=== PATIENT | female | born 1990 | race Caucasian/White ===

== ENCOUNTER 2018-11-02 20:16 | Emergency (ER) | payer BC ==
[2018-11-02] MEDS ORDERED: ONDANSETRON HCL INJ/PF 4 MG/2 ML SDV IV ONE (21:52)
[2018-11-02] MEDS ORDERED: NORMAL SALINE 1000 ML 1,000 ML IV ONE (21:52)
[2018-11-02 22:53] LABS: APPEARANCE,URINE CLEAR; BILIRUBIN,URINE NEGATIVE (NEGATIVE); COLOR,URINE YELLOW; GLUCOSE, URINE NEGATIVE (NEGATIVE); KETONES,URINE NEGATIVE (NEGATIVE); LEUKOCYTE ESTERASE,URINE NEGATIVE (NEGATIVE); NITRITE,URINE NEGATIVE (NEGATIVE); PROTEIN,URINE NEGATIVE (NEGATIVE); URINE SPECIFIC GRAVITY 1.011; UROBILINOGEN,URINE NEGATIVE mg/dL (<2.0)
[2018-11-02 22:58] LABS: ABSOLUTE BASOPHILS # (AUTO) 0.1 10^3/uL (0.0-0.2); ABSOLUTE EOSINOPHILS # (AUTO) 0.4 10^3/uL (0.0-0.6); ABSOLUTE LYMPHOCYTES (AUTO) 2.5 10^3/uL (0.5-4.7); ABSOLUTE MONOCYTES (AUTO) 0.5 10^3/uL (0.1-1.4); ABSOLUTE NEUT (AUTO) 3.3 10^3/uL (1.7-8.2); BASOPHILS % (AUTO) 1.4 % (0-2); EOSINOPHILS % (AUTO) 5.8 % (0-6); HEMATOCRIT 36.5 % (36.0-47.0); HEMOGLOBIN 12.4 g/dL (12.0-15.5); LYMPHOCYTES % (AUTO) 36.9 % (13-45); MEAN CORPUSCULAR HEMOGLOBIN 29.8 pg (27.0-33.4); MEAN CORPUSCULAR VOLUME 87 fl (80-97); MONOCYTES % (AUTO) 7.1 % (3-13); PLATELET COUNT 237 10^3/uL (150-450); RED BLOOD COUNT 4.18 10^6/uL (3.72-5.28); RED CELL DISTRIBUTION WIDTH 13.5 % (11.5-14.0); SEGMENTED NEUTROPHILS % (AUTO) 48.8 % (42-78); TOTAL CELLS COUNTED % (AUTO) 100 %; WHITE BLOOD COUNT 6.8 10^3/uL (4.0-10.5)
[2018-11-03 00:18] LABS: ALANINE AMINOTRANSFERASE 28 U/L (9-52); ALKALINE PHOSPHATASE 37 U/L (38-126); ANION GAP 7 (5-19); ASPARTATE AMINO TRANSFERASE 15 U/L (14-36); BILIRUBIN,TOTAL 0.3 mg/dL (0.2-1.3); BLOOD UREA NITROGEN 14 mg/dL (7-20); CALCIUM 8.9 mg/dL (8.4-10.2); CARBON DIOXIDE 28 mmol/L (22-30); CHLORIDE 107 mmol/L (98-107); GLUCOSE 98 mg/dL (75-110); LIPASE 86.6 U/L (23-300); POTASSIUM 3.9 mmol/L (3.6-5.0); SODIUM 141.6 mmol/L (137-145); TOTAL PROTEIN 5.9 g/dL (6.3-8.2)
--- NOTE | 2018-11-03 00:41 | RADIOLOGY REPORT (SQ) ---
CLINICAL HISTORY: upper abdominal pain COMPARISON: None. TECHNIQUE: US ABDOMEN LIMITED on 11/02/2018 10:45 PM INFORMATION ARCHITECT FINDINGS: Liver is normal in echotexture. Portal vein is patent. Abdominal aorta is nonaneurysmal. Limited images of the pancreas are unremarkable. Gallbladder is normally distended with a nonmobile stone in the gallbladder neck. Several other gallstones are present. There is no wall thickening or pericholecystic fluid. Common bile duct measures 2 mm. Right kidney measures 10.9 cm without hydronephrosis. IMPRESSION: Cholelithiasis without cholecystitis.
[2018-11-03] MEDS ORDERED: METOCLOPRAMIDE HCL ORAL SOLN 10 MG/10 ML UDCUP PO ONE (01:21)
[2018-11-03] MEDS ORDERED: SUCRALFATE 1 GM TABLET PO ONE (01:21)
[2018-11-03] MEDS ORDERED: LIDOCAINE 2% VISCOUS SOLN 20 ML UDCUP PO ONE (01:21)
[2018-11-03] MEDS ORDERED: FAMOTIDINE 20 MG TABLET PO ONE (01:21)
[2018-11-03] MEDS ORDERED: MAG HYDROX/AL HYDROX/SIMETH SUSP 30 ML UDCUP PO ONE (01:21)
--- NOTE | 2018-11-03 01:24 | ER Document Report ---
ED General - General Chief Complaint: Abdominal Pain Stated Complaint: NAUSEA,ABDOMINAL PAIN,BACK PAIN Time Seen by Provider: 11/02/18 22:28 Primary Care Provider: ALEXUS GORDON MD [ACTIVE STAFF] - Follow up as needed Notes: Patient is a 28-year-old female without chronic medical problems who presents with approximately 6 months of daily upper abdominal pain. Patient describes it as being an aching, burning pain to her upper abdomen that sometimes radiates into her chest. States it seems to be triggered by lying flat at night or eating. She states that there are various types of foods that trigger the pain but is uncertain of an exact pattern. She has tried Tums and Pepto-Bismol with minimal to no relief. Has not seen her general doctor regarding these concerns. Denies history of similar symptoms prior to the past several months. Has had associated nausea and vomiting. No fever or constitutional symptoms. No history of abdominal surgeries. TRAVEL OUTSIDE OF THE [place] IN LAST 30 DAYS: No - Related Data Allergies/Adverse Reactions: iodine [Iodine] Allergy (Mild, Verified 11/02/18 22:37) nausea and vomiting Past Medical History - General Information source: Patient - Social History Smoking Status: Never Smoker Frequency of alcohol use: None Drug Abuse: None Family History: Reviewed & Not Pertinent Past Surgical History: Reports: Hx Bowel Surgery - Imperforate anus surgery - Immunizations Immunizations up to date: Yes Hx Diphtheria, Pertussis, Tetanus Vaccination: Yes Review of Systems - Review of Systems Notes: Constitutional: Negative for fever. HENT: Negative for sore throat. Eyes: Negative for visual changes. Cardiovascular: Negative for chest pain. Respiratory: Negative for shortness of breath. Gastrointestinal: Positive for abdominal pain, nausea and vomiting Genitourinary: Negative for dysuria. Musculoskeletal: Negative for back pain. Skin: Negative for rash. Neurological: Negative for headaches, weakness or numbness. 10 point ROS negative except as marked above and in HPI. Physical Exam - Vital signs Vitals: Temp Pulse Resp BP Pulse Ox 98.1 F 78 18 119/53 L 100 11/02/18 20:40 11/02/18 20:40 11/02/18 20:40 11/02/18 20:40 11/02/18 20:40 Interpretation: Normal Notes: PHYSICAL EXAMINATION: GENERAL: Well-appearing, well-nourished and in no acute distress. HEAD: Atraumatic, normocephalic. EYES: Pupils equal round and reactive to light, extraocular movements intact, sclera anicteric, conjunctiva are normal. ENT: nares patent, oropharynx clear without exudates. Moist mucous membranes. NECK: Normal range of motion, supple without lymphadenopathy LUNGS: Breath sounds clear to auscultation bilaterally and equal. No wheezes rales or rhonchi. HEART: Regular rate and rhythm without murmurs ABDOMEN: Soft, nontender, normoactive bowel sounds. No guarding, no rebound. No masses appreciated. EXTREMITIES: Normal range of motion, no pitting or edema. No cyanosis. NEUROLOGICAL: No focal neurological deficits. Moves all extremities spontaneously and on command. PSYCH: Normal mood, normal affect. SKIN: Warm, Dry, normal turgor, no rashes or lesions noted. Course - Re-evaluation Re-evalutation: 11/03/18 01:21 Patient presents with epigastric abdominal pain with associated reflux symptoms most consistent with likely gastritis. Alternative consideration would be symptomatic cholelithiasis although the patient's characterization of nighttime symptoms and localization of pain to the epigastrium left upper quadrant will be atypical for this. Patient has no focal abdominal tenderness on examination. Right upper quadrant ultrasound does not demonstrate any evidence of acute cholecystitis. Lipase is normal. No LFT changes. Based on history and exam, I do not suspect ACS, pulmonary embolus, SBO, mesenteric ischemia, acute pancreatitis, biliary pathology, or an abdominal aortic dissection. Patient has had improvement of symptoms here with a GI cocktail. At this time will discharge with return precautions and follow-up recommendations. I have advised that should her symptoms fail to improve she will need to follow-up with surgery for consideration of a cholecystectomy. Verbal discharge instructions given a the bedside and opportunity for questions given. Medication warnings reviewed. Patient is in agreement with this plan and has verbalized understanding of return precautions and the need for primary care follow-up in the next 24-72 hours. - Vital Signs Vital signs: Temp Pulse Resp BP Pulse Ox 97.9 F 65 18 85/43 L 99 11/03/18 01:35 11/03/18 01:35 11/03/18 01:35 11/03/18 01:35 11/03/18 01:35 - Laboratory Result Diagrams: 11/02/18 22:54 11/02/18 23:50 Laboratory results interpreted by me: 11/02/18 23:50 Alkaline Phosphatase 37 L Total Protein 5.9 L - Diagnostic Test Radiology reviewed: Reports reviewed Discharge - Discharge Clinical Impression: Gastritis/duodenitis Nausea and vomiting Qualifiers: Vomiting type: unspecified Vomiting Intractability: non-intractable Qualified Code(s): R11.2 - Nausea with vomiting, unspecified Cholelithiasis Qualifiers: Cholelithiasis location: gallbladder Cholecystitis presence: without cholecystitis Biliary obstruction: without biliary obstruction Qualified Code(s): K80.20 - Calculus of gallbladder without cholecystitis without obstruction Condition: Good Disposition: HOME, SELF-CARE Additional Instructions: Your symptoms appear to be most consistent with stomach or upper intestinal irritation. Please begin taking famotidine 40 mg in the morning and 40 mg at night. Take Carafate prior to meals. You may also take medicine such as Pepto- Bismol or Tums to assist with your pain. Please return to emergency department immediately if you have worsening of your pain, become unable to tolerate food or fluids, develop fever of greater than 100.4 F, shortness of breath, become unable to exert yourself due to pain or difficulty breathing, you pass out, or have any pain that radiates into your arms, jaw, or back. Please also return if you have any additional symptoms that are concerning to you. As we have discussed, the most important thing is lifestyle changes. You need to avoid smoking, sodas, tea, coffee, alcohol, spicy foods, and acidic foods such as citrus fruits, tomato based products, berries, and most fruit juices. As we discussed you do have gallstones but it does not appear that your gallbladder is likely the cause of your pain today. However if you are failing to improve with the dietary changes as listed above as well as the prescribed medications within the next 1-2 weeks I strongly advised you to follow-up with surgery for consideration of an elective cholecystectomy. Prescriptions: Famotidine 40 mg PO BID #60 tablet Sucralfate [Carafate 1 gm Tablet] 1 gm PO ACHS #120 tablet Referrals: ALEXUS GORDON MD [ACTIVE STAFF] - Follow up as needed
[2018-11-03 01:41] VITALS: BP 85/43
== END 2018-11-03 02:10 | disposition home or self-care (01) ==
LOC: ER 20:16
DX: K29.70 Gastritis, unspecified, without bleeding (principal); K29.80 Duodenitis without bleeding; K80.20 Calculus of gallbladder without cholecystitis without obstruction; R11.2 Nausea with vomiting, unspecified; R10.13 Epigastric pain
CPT/HCPCS: 99283; 96361; 96374; 36415; 83690; 84703; 85025; 80053; 81001; 76705; J3490; J2405; J7030

== ENCOUNTER 2018-11-04 22:37 | Emergency (ER) | payer BC ==
[2018-11-04] MEDS ORDERED: MORPHINE SULFATE 10 MG/ML INJ IV ONE (23:18)
[2018-11-04] MEDS ORDERED: NORMAL SALINE 1000 ML 1,000 ML IV ONE (23:19)
[2018-11-04] MEDS ORDERED: ONDANSETRON HCL INJ/PF 4 MG/2 ML SDV IV ONE (23:19)
--- NOTE | 2018-11-04 23:21 | ER Document Report ---
ED Medical Screen (RME) - General Chief Complaint: Upper Abdominal Pain Stated Complaint: UPPER ABDOMINAL PAIN Time Seen by Provider: 11/04/18 23:09 Primary Care Provider: NIRALI DUNN MD [Primary Care Provider] - Follow up as needed Notes: Patient is a 28-year-old female who presents to the emergency department with a chief complaint of abdominal pain. Her pain is in the epigastric region and in her right upper quadrant. She was seen 2 days ago and diagnosed with cholelithiasis without cholecystitis. She was sent home to be medically managed. She states that she has continued to have the pain. Her pain does come in waves. This last wave started 3 hours ago. TRAVEL OUTSIDE OF THE [place] IN LAST 30 DAYS: No - Related Data Allergies/Adverse Reactions: iodine [Iodine] Allergy (Mild, Verified 11/02/18 22:37) nausea and vomiting Past Medical History - Social History Chew tobacco use (# tins/day): No Frequency of alcohol use: None Drug Abuse: None Renal/ Medical History: Denies: Hx Peritoneal Dialysis GI Medical History: Reports: Hx Gastroesophageal Reflux Disease Past Surgical History: Reports: Hx Bowel Surgery - Imperforate anus surgery - Immunizations Immunizations up to date: Yes Hx Diphtheria, Pertussis, Tetanus Vaccination: Yes Physical Exam - Vital signs Vitals: Temp Pulse Resp BP Pulse Ox 98.2 F 86 18 134/54 H 98 11/04/18 23:10 11/04/18 23:10 11/04/18 23:10 11/04/18 23:10 11/04/18 23:10 - Abdominal Tenderness: Tender, McBurney's point - Epigastric area Course - Vital Signs Vital signs: Temp Pulse Resp BP Pulse Ox 98.2 F 86 18 134/54 H 98 11/04/18 23:10 11/04/18 23:10 11/04/18 23:10 11/04/18 23:10 11/04/18 23:10 Doctor's Discharge - Discharge Referrals: NIRALI DUNN MD [Primary Care Provider] - Follow up as needed
[2018-11-05 00:14] LABS: ABSOLUTE EOSINOPHILS # (AUTO) 0.6 10^3/uL (0.0-0.6); ABSOLUTE LYMPHOCYTES (AUTO) 1.9 10^3/uL (0.5-4.7); ABSOLUTE MONOCYTES (AUTO) 0.4 10^3/uL (0.1-1.4); ABSOLUTE NEUT (AUTO) 3.4 10^3/uL (1.7-8.2); BASOPHILS % (AUTO) 0.6 % (0-2); EOSINOPHILS % (AUTO) 9.5 % (0-6); HEMATOCRIT 35.6 % (36.0-47.0); HEMOGLOBIN 12.1 g/dL (12.0-15.5); LYMPHOCYTES % (AUTO) 30.2 % (13-45); MEAN CORPUSCULAR HEMOGLOBIN 29.5 pg (27.0-33.4); MEAN CORPUSCULAR HGB CONC 34.1 g/dL (32.0-36.0); MEAN CORPUSCULAR VOLUME 87 fl (80-97); MONOCYTES % (AUTO) 6.7 % (3-13); PLATELET COUNT 232 10^3/uL (150-450); RED BLOOD COUNT 4.11 10^6/uL (3.72-5.28); RED CELL DISTRIBUTION WIDTH 13.4 % (11.5-14.0); TOTAL CELLS COUNTED % (AUTO) 100 %; WHITE BLOOD COUNT 6.4 10^3/uL (4.0-10.5)
[2018-11-05 00:25] LABS: ALANINE AMINOTRANSFERASE 27 U/L (9-52); ALBUMIN 4.4 g/dL (3.5-5.0); ALKALINE PHOSPHATASE 35 U/L (38-126); ANION GAP 8 (5-19); ASPARTATE AMINO TRANSFERASE 17 U/L (14-36); BILIRUBIN,TOTAL 0.5 mg/dL (0.2-1.3); BLOOD UREA NITROGEN 13 mg/dL (7-20); CALCIUM 9.6 mg/dL (8.4-10.2); CARBON DIOXIDE 27 mmol/L (22-30); CHLORIDE 106 mmol/L (98-107); GLUCOSE 90 mg/dL (75-110); POTASSIUM 4.3 mmol/L (3.6-5.0); SODIUM 141.1 mmol/L (137-145); TOTAL PROTEIN 6.5 g/dL (6.3-8.2)
--- NOTE | 2018-11-05 00:48 | ER Document Report ---
ED GI/ - General Chief Complaint: Upper Abdominal Pain Stated Complaint: UPPER ABDOMINAL PAIN Time Seen by Provider: 11/05/18 00:48 Primary Care Provider: NIRALI DUNN MD [Primary Care Provider] - Follow up as needed ALEXUS GORDON MD [ACTIVE STAFF] - Follow up as needed Mode of Arrival: Ambulatory Information source: Patient, Relative Notes: HISTORY OF PRESENT ILLNESS: Patient is a 28-year-old female with no significant past medical history who presents with abdominal pain in the upper abdomen that has been off and on for the past several days but first began "at least a couple months ago." Patient denies known injuries, no known sick contacts. Location: Upper abdomen Onset: Sudden, chronic over the past 2-3 months Alleviation: None Provocation: "Eating food" Quality: Aching, cramping Radiation: "Through to the back" Severity: Currently mild after medication, "severe" at its worst Timing: Intermittent History of abdominal surgery: None Associated symptoms: Nausea with nonbloody and nonbilious emesis, denies fevers or chills Last bowel movement: Yesterday and "normal" Last menstrual period: 3 weeks ago and normal REVIEW OF SYSTEMS: CONSTITUTIONAL : Denies fever or chills, no sweats. Denies recent illness. EENT: Denies eye, ear, throat, or mouth pain or symptoms. Denies nasal or sinus congestion. CARDIOVASCULAR: Denies chest pain. Denies swelling of the legs. RESPIRATORY: Denies cough, cold, or chest congestion. Denies shortness of breath or difficulty breathing. Denies wheezing. GASTROINTESTINAL: Positive for abdominal pain. Positive for nausea and vomiting nonbloody and nonbilious emesis, no diarrhea. Denies constipation. GENITOURINARY: Denies difficulty urinating, painful urination, burning, frequency, or blood in urine. FEMALE GENITOURINARY: Denies vaginal bleeding, abnormal or irregular periods. MUSCULOSKELETAL: Denies neck or back pain or joint pain or swelling. SKIN: Denies rash or skin lesions. HEMATOLOGIC : Denies easy bruising or bleeding. LYMPHATIC: Denies swollen, enlarged glands. NEUROLOGICAL: Denies altered mental status or loss of consciousness. Denies headache. Denies weakness or paralysis or loss of use of either side. Denies problems with gait or speech. Denies sensory or motor loss. PSYCHIATRIC: Denies anxiety or stress or depression. All other systems reviewed and negative. PHYSICAL EXAMINATION: GENERAL: Well-appearing, well-nourished and in no acute distress. HEAD: Atraumatic, normocephalic. No scalp deformity, depression, or crepitance. EYES: Pupils are 3 mm and equal/round/reactive to light, extraocular movements intact, sclera anicteric, conjunctiva are normal. ENT: Nares patent bilaterally, oropharynx. Moist mucous membranes. No tonsil hypertrophy. NECK: Normal range of motion, supple without lymphadenopathy. LUNGS: Breath sounds present, equal, and clear to auscultation bilaterally. No wheezes, rales, or rhonchi. HEART: Regular rate and rhythm without murmurs, rubs, or gallops. 2+ peripheral pulses. Normal capillary refill. ABDOMEN: Mild epigastric and right upper quadrant tenderness, otherwise soft and nondistended, no peritoneal signs. Normoactive bowel sounds. No guarding, no rebound. No masses appreciated. BACK: Normal contour, no midline tenderness. Rectal exam deferred. GENITAL/PELVIC: Deferred. EXTREMITIES: Normal range of motion, no pitting or edema. No cyanosis. NEUROLOGICAL: No focal neurological deficits. Moves all extremities spontaneously and on command. PSYCH: Normal mood, normal affect. No suicidal thoughts/ideations. No homocidal thoughts/ideations. No hallucinations. SKIN: Warm, dry, normal turgor, no rashes or lesions noted. ASSESSMENT AND PLAN: This patient is a 28-year-old female who presents with abdominal pain most likely represents cholelithiasis versus cholecystitis versus pancreatitis versus gastritis/peptic ulcer disease. 1. Will obtain labs, urine, lipase, right upper quadrant ultrasound. 2. Will give IV fluids with morphine and Zofran. TRAVEL OUTSIDE OF THE [place] IN LAST 30 DAYS: No - Related Data Allergies/Adverse Reactions: iodine [Iodine] Allergy (Mild, Verified 11/02/18 22:37) nausea and vomiting Past Medical History - General Information source: Patient, Relative - Social History Smoking Status: Unknown if Ever Smoked Chew tobacco use (# tins/day): No Frequency of alcohol use: None Drug Abuse: None Lives with: Family Family History: Reviewed & Not Pertinent Patient has suicidal ideation: No Patient has homicidal ideation: No - Past Medical History Cardiac Medical History: Reports: None Pulmonary Medical History: Reports: None EENT Medical History: Reports: None Neurological Medical History: Reports: None Endocrine Medical History: Reports: None Renal/ Medical History: Reports: None. Denies: Hx Peritoneal Dialysis Malignancy Medical History: Reports: None GI Medical History: Reports: Hx Gastroesophageal Reflux Disease Musculoskeletal Medical History: Reports None Skin Medical History: Reports None Psychiatric Medical History: Reports: None Traumatic Medical History: Reports: None Infectious Medical History: Reports: None Past Surgical History: Reports: Hx Bowel Surgery - Imperforate anus surgery - Immunizations Immunizations up to date: Yes Hx Diphtheria, Pertussis, Tetanus Vaccination: Yes Physical Exam - Vital signs Vitals: Temp Pulse Resp BP Pulse Ox 98.2 F 86 18 134/54 H 98 11/04/18 23:10 11/04/18 23:10 11/04/18 23:10 11/04/18 23:10 11/04/18 23:10 Course - Re-evaluation Re-evalutation: 11/05/18 03:16 Ultrasound shows cholelithiasis without evidence of acute cholecystitis. Labs show normal white blood cell count, normal LFTs and lipase. Patient will be discharged home with return precautions and follow-up with surgery for an outpatient elective cholecystectomy. Patient and her father at bedside both voiced understanding and agreeing with the plan. - Vital Signs Vital signs: Temp Pulse Resp BP Pulse Ox 98.2 F 88 14 97/54 L 98 11/04/18 23:10 11/05/18 03:33 11/05/18 03:33 11/05/18 03:33 11/05/18 03:33 - Laboratory Result Diagrams: 11/04/18 23:57 11/04/18 23:57 Laboratory results interpreted by me: 11/04/18 11/04/18 23:57 23:57 Hct 35.6 L Eosinophils % 9.5 H Alkaline Phosphatase 35 L - Diagnostic Test Radiology reviewed: Image reviewed, Reports reviewed Discharge - Discharge Clinical Impression: Abdominal pain Qualifiers: Abdominal location: epigastric Qualified Code(s): R10.13 - Epigastric pain Cholelithiasis Qualifiers: Cholelithiasis location: gallbladder Cholecystitis presence: without cholecystitis Biliary obstruction: without biliary obstruction Qualified Code(s): K80.20 - Calculus of gallbladder without cholecystitis without obs truction Condition: Good Disposition: HOME, SELF-CARE Instructions: Gallbladder Disease ([facility]) Additional Instructions: You have been evaluated in the Emergency Department for abdominal pain related to your gallbladder. Blood work was reassuring and an ultrasound showed evidence of gallstones but no infection. Please follow-up with your primary physician but also a surgeon in the next few days to discuss having your gallbladder removed. Return to the Emergency Department if you experience unc ontrollable nausea, uncontrollable pain, the inability to keep down food, high fevers, or any other concerning symptoms. Prescriptions: Ondansetron [Zofran Odt 4 mg Tablet] 1 tab PO Q6H PRN #30 tab.rapdis PRN Reason: For Nausea/Vomiting Oxycodone HCl/Acetaminophen [Percocet 5-325 mg Tablet] 1 tab PO Q6H PRN #20 tablet PRN Reason: Forms: Return to Work Referrals: NIRALI DUNN MD [Primary Care Provider] - Follow up as needed ALEXUS GORDON MD [ACTIVE STAFF] - Follow up as needed Print Language: Arabic
--- NOTE | 2018-11-05 00:54 | RADIOLOGY REPORT (SQ) ---
EXAM DESCRIPTION: US ABDOMEN LIMITED COMPLETED DATE/TME: 11/04/2018 23:18 CLINICAL HISTORY: 28 years, Female, right upper quadrant abd pain COMPARISON: 2-19 ultrasound TECHNIQUE: Limited right upper quadrant ultrasound LIMITATIONS: None. FINDINGS: The liver is homogenous in echotexture without focal lesion. Numerous shadowing stones throughout the gallbladder lumen. Negative sonographic Burgess sign. No gallbladder wall thickening or pericholecystic fluid. CBD measures 4.5 mm. Visualized right kidney, pancreas, abdominal aorta are unremarkable. No ascites. IMPRESSION: Cholelithiasis. No sonographic evidence for cholecystitis copyright 2010 [facility] [employer]- All Rights Reserved
[2018-11-05] MEDS ORDERED: MORPHINE SULFATE 10 MG/ML INJ IV ONE (02:42)
[2018-11-05] MEDS ORDERED: ONDANSETRON HCL INJ/PF 4 MG/2 ML SDV IV ONE (02:43)
[2018-11-05 03:34] VITALS: BP 97/54
== END 2018-11-05 03:34 | disposition home or self-care (01) ==
LOC: ER 22:37
DX: K80.20 Calculus of gallbladder without cholecystitis without obstruction (principal); R10.13 Epigastric pain; R10.10 Upper abdominal pain, unspecified; R11.2 Nausea with vomiting, unspecified
CPT/HCPCS: 96376; 99284; 96361; 96374; 96375; 36415; 85025; 80053; 76705; J2270; J2405; J7030

== ENCOUNTER 2018-11-07 23:18 | Observation (INO) | payer BC ==
[2018-11-07] MEDS ORDERED: MORPHINE SULFATE 10 MG/ML INJ IV ONE (23:42)
[2018-11-07] MEDS ORDERED: ONDANSETRON HCL INJ/PF 4 MG/2 ML SDV IV ONE (23:42)
[2018-11-07] MEDS ORDERED: NORMAL SALINE 1000 ML 1,000 ML IV ONE (23:42)
--- NOTE | 2018-11-07 23:45 | ER Document Report ---
ED Medical Screen (RME) - General Chief Complaint: Abdominal Pain Stated Complaint: STOMACH PAIN Time Seen by Provider: 11/07/18 23:41 Primary Care Provider: NIRALI DUNN MD [Primary Care Provider] - Follow up as needed Notes: 28-year-old female with known cholelithiasis. Comes into the third time this week with gallbladder related abdominal pain and intractable vomiting. She has not yet seen the surgeon as an outpatient. No fevers or chills. No jaundice. I have treated and performed a rapid initial assessment of this patient. A comprehensive ED assessment and evaluation of the patient, analysis of test results and completion of medical decision making process will be conducted by additional ED providers. PHYSICAL EXAMINATION: GENERAL: Very uncomfortable, moving around in triage letting her stomach LUNGS: Breath sounds clear to auscultation bilaterally and equal. No wheezes rales or rhonchi. HEART: Regular rate and rhythm without murmurs, rubs, gallops. ABD: Nondistended. TRAVEL OUTSIDE OF THE [place] IN LAST 30 DAYS: No - Related Data Allergies/Adverse Reactions: iodine [Iodine] Allergy (Mild, Verified 11/02/18 22:37) nausea and vomiting Past Medical History Renal/ Medical History: Denies: Hx Peritoneal Dialysis GI Medical History: Reports: Hx Gastroesophageal Reflux Disease Past Surgical History: Reports: Hx Bowel Surgery - Imperforate anus surgery - Immunizations Immunizations up to date: Yes Hx Diphtheria, Pertussis, Tetanus Vaccination: Yes Physical Exam - Vital signs Vitals: Temp Pulse Resp BP Pulse Ox 97.6 F 89 20 115/65 99 11/07/18 23:32 11/07/18 23:32 11/07/18 23:32 11/07/18 23:32 11/07/18 23:32 Course - Vital Signs Vital signs: Temp Pulse Resp BP Pulse Ox 97.6 F 89 20 115/65 99 11/07/18 23:32 11/07/18 23:32 11/07/18 23:32 11/07/18 23:32 11/07/18 23:32 Doctor's Discharge - Discharge Referrals: NIRALI DUNN MD [Primary Care Provider] - Follow up as needed
[2018-11-08 00:05] LABS: ABSOLUTE BASOPHILS # (AUTO) 0.1 10^3/uL (0.0-0.2); ABSOLUTE EOSINOPHILS # (AUTO) 0.7 10^3/uL (0.0-0.6); ABSOLUTE LYMPHOCYTES (AUTO) 2.6 10^3/uL (0.5-4.7); ABSOLUTE MONOCYTES (AUTO) 0.5 10^3/uL (0.1-1.4); ABSOLUTE NEUT (AUTO) 3.8 10^3/uL (1.7-8.2); BASOPHILS % (AUTO) 0.7 % (0-2); EOSINOPHILS % (AUTO) 9.2 % (0-6); HEMATOCRIT 35.5 % (36.0-47.0); HEMOGLOBIN 12.2 g/dL (12.0-15.5); LYMPHOCYTES % (AUTO) 33.9 % (13-45); MEAN CORPUSCULAR HEMOGLOBIN 29.8 pg (27.0-33.4); MEAN CORPUSCULAR HGB CONC 34.4 g/dL (32.0-36.0); MEAN CORPUSCULAR VOLUME 87 fl (80-97); MONOCYTES % (AUTO) 6.1 % (3-13); PLATELET COUNT 248 10^3/uL (150-450); RED CELL DISTRIBUTION WIDTH 13.3 % (11.5-14.0); SEGMENTED NEUTROPHILS % (AUTO) 50.1 % (42-78); TOTAL CELLS COUNTED % (AUTO) 100 %; WHITE BLOOD COUNT 7.7 10^3/uL (4.0-10.5)
[2018-11-08 00:10] LABS: APPEARANCE,URINE SLIGHTLY-CLOUDY; BILIRUBIN,URINE NEGATIVE (NEGATIVE); COLOR,URINE YELLOW; GLUCOSE, URINE NEGATIVE (NEGATIVE); KETONES,URINE NEGATIVE (NEGATIVE); LEUKOCYTE ESTERASE,URINE NEGATIVE (NEGATIVE); NITRITE,URINE NEGATIVE (NEGATIVE); PROTEIN,URINE NEGATIVE (NEGATIVE); URINE SPECIFIC GRAVITY 1.015; UROBILINOGEN,URINE NEGATIVE mg/dL (<2.0)
[2018-11-08 00:21] LABS: ALANINE AMINOTRANSFERASE 20 U/L (9-52); ALBUMIN 4.3 g/dL (3.5-5.0); ALKALINE PHOSPHATASE 36 U/L (38-126); ANION GAP 8 (5-19); ASPARTATE AMINO TRANSFERASE 18 U/L (14-36); BILIRUBIN,DIRECT 0.2 mg/dL (0.0-0.4); BILIRUBIN,TOTAL 0.3 mg/dL (0.2-1.3); BLOOD UREA NITROGEN 13 mg/dL (7-20); CALCIUM 9.4 mg/dL (8.4-10.2); CARBON DIOXIDE 28 mmol/L (22-30); CHLORIDE 104 mmol/L (98-107); GLUCOSE 100 mg/dL (75-110); LIPASE 80.1 U/L (23-300); POTASSIUM 4.4 mmol/L (3.6-5.0); SODIUM 139.7 mmol/L (137-145); TOTAL PROTEIN 6.2 g/dL (6.3-8.2)
[2018-11-08] MEDS ORDERED: MORPHINE SULFATE 10 MG/ML INJ IV ONE ×2 (01:30→16:00)
[2018-11-08] MEDS ORDERED: HYDROMORPHONE HCL INJ/PF 2 MG/ML AMPULE IV ONE ×2 (03:09→05:13)
--- NOTE | 2018-11-08 03:16 | ER Document Report ---
ED General - General Chief Complaint: Abdominal Pain Stated Complaint: STOMACH PAIN Time Seen by Provider: 11/07/18 23:41 Primary Care Provider: NIRALI DUNN MD [Primary Care Provider] - Follow up as needed Notes: Patient is a 28-year-old female presents with complaint of right upper quadrant and epigastric abdominal pain. She is had this off and on for over a week. This is affected by eating. Today she had sushi and the pain became much worse. Some nausea and vomiting. No fevers. She was seen twice in the ER this week for similar symptoms and discharged home with outpatient surgery follow-up. She has an upcoming appointment this morning however pain is been intractable tonight and therefore she came to the ER. Patient received 2 doses of morphine in the lobby. She still has intractable pain and is writhing in pain in the bed. She has no chronic medical problems and she is otherwise healthy. TRAVEL OUTSIDE OF THE [place] IN LAST 30 DAYS: No - Related Data Allergies/Adverse Reactions: iodine [Iodine] Allergy (Mild, Verified 11/08/18 02:39) nausea and vomiting Past Medical History - Social History Smoking Status: Current Every Day Smoker Frequency of alcohol use: None Drug Abuse: None Family History: Reviewed & Not Pertinent Patient has suicidal ideation: No Patient has homicidal ideation: No Renal/ Medical History: Denies: Hx Peritoneal Dialysis GI Medical History: Reports: Hx Gastroesophageal Reflux Disease Past Surgical History: Reports: Hx Bowel Surgery - Imperforate anus surgery - Immunizations Immunizations up to date: Yes Hx Diphtheria, Pertussis, Tetanus Vaccination: Yes Review of Systems - Review of Systems Notes: My Normal Review Basic REVIEW OF SYSTEMS: CONSTITUTIONAL : Denies fever, chills, or sweats. Denies recent illness. EENT: Denies eye, ear, throat, or mouth pain or symptoms. Denies nasal or sinus congestion. CARDIOVASCULAR: Denies chest pain. RESPIRATORY: Denies cough, cold, or chest congestion. Denies shortness of breath, difficulty breathing, or wheezing. GASTROINTESTINAL: Right upper quadrant abdominal pain. Nausea and vomiting. GENITOURINARY: Denies difficulty urinating, painful urination, burning, frequency, or blood in urine. MUSCULOSKELETAL: Denies neck or back pain or joint pain or swelling. SKIN: Denies rash or skin lesions. NEUROLOGICAL: Denies altered mental status or loss of consciousness. Denies headache. Denies weakness or paralysis or loss of use of either side. Denies problems with gait or speech. Denies sensory or motor loss. ALL OTHER SYSTEMS REVIEWED AND NEGATIVE. Physical Exam - Vital signs Vitals: Temp Pulse Resp BP Pulse Ox 97.6 F 89 20 115/65 99 11/07/18 23:32 11/07/18 23:32 11/07/18 23:32 11/07/18 23:32 11/07/18 23:32 - Notes Notes: General Appearance: Well nourished, alert, cooperative, no acute distress, moderate obvious discomfort. Vitals: reviewed, See vital signs table. Head: no swelling or tenderness to the head Eyes: PERRL, EOMI, Conjuctiva clear Mouth: No decreasd moisture Lungs: No wheezing, No rales, No rhonci, No accessory muscle use, good air exchange bilaterally. Heart: Normal rate, Regular rythm, No murmur, no rub Abdomen: Normal BS, soft, No rigidity, moderate epigastric and right upper quadrant abdominal tenderness to palpation. Remainder of abdomen is nontender., No guarding, no rebound, no abdominal masses, no organomegaly Extremities: strength 5/5 in all extremities, good pulses in all extremities, no swelling or tenderness in the extremities, no edema. Skin: warm, dry, appropriate color, no rash Neuro: speech clear, oriented x 3, normal affect, responds appropriately to questions. Course - Re-evaluation Re-evalutation: 11/08/18 05:14 Patient is having recurrent pain. Pain medicine helps but as soon as it wears off she goes back into riding intractable pain. I have called Dr. Huang, general surgeon, who agrees to come evaluate the patient. Dictation of this chart was performed using voice recognition software; therefore, there may be some unintended grammatical errors. 11/08/18 06:00 - Vital Signs Vital signs: Temp Pulse Resp BP Pulse Ox 97.5 F 75 20 90/57 L 99 11/08/18 03:02 11/08/18 03:02 11/08/18 05:01 11/08/18 05:01 11/08/18 05:01 - Laboratory Result Diagrams: 11/07/18 23:50 11/07/18 23:50 Laboratory results interpreted by me: 11/07/18 11/07/18 23:50 23:50 Hct 35.5 L Eosinophils % 9.2 H Absolute Eosinophils 0.7 H Alkaline Phosphatase 36 L Total Protein 6.2 L Discharge - Discharge Clinical Impression: Cholelithiasis Qualifiers: Cholelithiasis location: gallbladder Cholecystitis presence: without cholecystitis Biliary obstruction: without biliary obstruction Qualified Code(s): K80.20 - Calculus of gallbladder without cholecystitis without obstruction Nausea and vomiting Qualifiers: Vomiting type: unspecified Vomiting Intractability: non-intractable Qualified Code(s): R11.2 - Nausea with vomiting, unspecified Abdominal pain Qualifiers: Abdominal location: right upper quadrant Qualified Code(s): R10.11 - Right upper quadrant pain Condition: Stable Disposition: ADMITTED OBSERVATION Admitting Provider: Surgicalist Unit Admitted: Surgical Floor Referrals: NIRALI DUNN MD [Primary Care Provider] - Follow up as needed
--- NOTE | 2018-11-08 04:07 | RADIOLOGY REPORT (SQ) ---
EXAM DESCRIPTION: US ABDOMEN DOPPLER LIMITED COMPLETED DATE/TME: 11/08/2018 03:09 CLINICAL HISTORY: 28 years, Female, RUQ abdominal pain COMPARISON: 11/05/2018 ultrasound TECHNIQUE: Limited right upper quadrant ultrasound LIMITATIONS: None. FINDINGS: The liver is homogenous in echotexture without focal lesion. Multiple shadowing stones throughout the gallbladder lumen, as well as in the region of the gallbladder neck. No gallbladder wall thickening. Negative sonographic Burgess's sign. Trace of pericholecystic fluid. Visualized pancreas, abdominal aorta, right kidney are unremarkable. CBD measures 4.4 mm. No ascites IMPRESSION: Cholelithiasis, as before. Trace of pericholecystic fluid. Remainder unremarkable copyright 2010 [employer]- All Rights Reserved
--- NOTE | 2018-11-08 06:17 | PDOC H&P ---
History of Present Illness Admission Date/PCP: 11/08/18 06:03 History of Present Illness: OPHELIA STRICKLAND is a 28 year old female presents with abdomen pain in upper abdomen with 3 visits to er in last 5 days c/o pain in ruq with radiation to rt back, + nausea, no fever, chills. Past Medical History Cardiac Medical History: Reports: None Pulmonary Medical History: Reports: None EENT Medical History: Reports: None Neurological Medical History: Reports: None Endocrine Medical History: Reports: None Renal/ Medical History: Reports: None Malignancy Medical History: Reports: None GI Medical History: Reports: None, Gastroesophageal Reflux Disease Musculoskeltal Medical History: Reports: None Skin Medical History: Reports: None Psychiatric Medical History: Reports: None Traumatic Medical History: Reports: None Hematology: Reports: None Infectious Medical History: Reports: None Past Surgical History Past Surgical History: Reports: None Social History Lives with: Family Smoking Status: Current Every Day Smoker Family History Family History: Reviewed & Not Pertinent Parental Family History Reviewed: No Children Family History Reviewed: No Sibling(s) Family History Reviewed.: No Medication/Allergy Home Medications: Naproxen 500 mg PO BIDP PRN #20 tablet 08/16/15 Ondansetron HCl [Zofran 4 mg Tablet] 1 tab PO Q8HP PRN #10 tablet 08/16/15 Famotidine 40 mg PO BID #60 tablet 11/03/18 Sucralfate [Carafate 1 gm Tablet] 1 gm PO ACHS #120 tablet 11/03/18 Ondansetron [Zofran Odt 4 mg Tablet] 1 tab PO Q6H PRN #30 tab.rapdis 11/05/18 Oxycodone HCl/Acetaminophen [Percocet 5-325 mg Tablet] 1 tab PO Q6H PRN #20 tablet 11/05/18 Allergies/Adverse Reactions: iodine [Iodine] Allergy (Mild, Verified 11/08/18 02:39) nausea and vomiting Review of Systems Constitutional: PRESENT: as per HPI Eyes: PRESENT: as per HPI Ears: PRESENT: as per HPI Nose, Mouth, and Throat: PRESENT: as per HPI Breasts: PRESENT: as per HPI, other Cardiovascular: PRESENT: as per HPI Respiratory: PRESENT: as per HPI Gastrointestinal: PRESENT: as per HPI Genitourinary: PRESENT: as per HPI Musculoskeletal: PRESENT: as per HPI Integumentary: PRESENT: as per HPI Neurological: PRESENT: as per HPI Psychiatric: PRESENT: as per HPI Endocrine: PRESENT: as per HPI Hematologic/Lymphatic: PRESENT: as per HPI Allergic/Immunologic: PRESENT: as per HPI Physical Exam Vital Signs: Temp Pulse Resp BP Pulse Ox 97.5 F 75 20 90/57 L 99 11/08/18 03:02 11/08/18 03:02 11/08/18 05:01 11/08/18 05:01 11/08/18 05:01 Intake & Output 11/06/18 11/07/18 11/08/18 06:59 06:59 06:59 Intake Total 1000 Balance 1000 Weight 52.8 kg General appearance: PRESENT: mild distress Head exam: PRESENT: atraumatic Eye exam: PRESENT: EOMI Mouth exam: PRESENT: moist Neck exam: PRESENT: full ROM Respiratory exam: PRESENT: clear to auscultation volodymyr Cardiovascular exam: PRESENT: RRR Pulses: PRESENT: normal carotid pulses, normal radial pulses, normal femoral pulses GI/Abdominal exam: PRESENT: Burgess's sign Rectal exam: PRESENT: deferred Extremities exam: PRESENT: full ROM Musculoskeletal exam: PRESENT: full ROM Neurological exam: PRESENT: alert, awake, oriented to person, oriented to place, oriented to time, oriented to situation Skin exam: PRESENT: dry Results Laboratory Results: 11/07/18 23:50 11/07/18 23:50 11/07/18 11/07/18 11/07/18 23:50 23:50 23:50 WBC 7.7 RBC 4.10 Hgb 12.2 Hct 35.5 L MCV 87 MCH 29.8 MCHC 34.4 RDW 13.3 Plt Count 248 Seg Neutrophils % 50.1 Lymphocytes % 33.9 Monocytes % 6.1 Eosinophils % 9.2 H Basophils % 0.7 Absolute Neutrophils 3.8 Absolute Lymphocytes 2.6 Absolute Monocytes 0.5 Absolute Eosinophils 0.7 H Absolute Basophils 0.1 Sodium 139.7 Potassium 4.4 Chloride 104 Carbon Dioxide 28 Anion Gap 8 BUN 13 Creatinine 0.65 Est GFR ( Amer) > 60 Est GFR (Non-Af Amer) > 60 Glucose 100 Calcium 9.4 Total Bilirubin 0.3 AST 18 ALT 20 Alkaline Phosphatase 36 L Total Protein 6.2 L Albumin 4.3 Lipase 80.1 Urine Color YELLOW Urine Appearance SLIGHTLY-CLOUDY Urine pH 6.0 Ur Specific [place] 1.015 Urine Protein NEGATIVE Urine Glucose (UA) NEGATIVE Urine Ketones NEGATIVE Urine Blood NEGATIVE Urine Nitrite NEGATIVE Ur Leukocyte Esterase NEGATIVE Urine WBC (Auto) 1 Urine RBC (Auto) 1 Impressions: Abdomen Ultrasound 11/08/18 03:09 IMPRESSION: Cholelithiasis, as before. Trace of pericholecystic fluid. Remainder unremarkable copyright 2010 [employer]- All Rights Reserved Assessment & Plan - Diagnosis (2) Cholelithiasis Qualifiers: Cholelithiasis location: gallbladder Cholecystitis presence: without cholec ystitis Biliary obstruction: without biliary obstruction Qualified Code(s): K80.20 - Calculus of gallbladder without cholecystitis without obstruction - Time Time Spent: 50 to 70 Minutes - Plan Summary Plan Summary: 28 y/o female with acute cholecystitis plan is for laparoscopic cholecystectomy risks benefits discussed with pt including injury to adjacent organs, bleeding,infection, hernia, need for open operation heart attack, pneumonia pulmonary embolism . risks and benefits have been explained, and pt agrees to proceed.
[2018-11-08] MEDS ORDERED: HYDROMORPHONE HCL INJ/PF 2 MG/ML AMPULE ONE ×2 (08:14→11:54)
[2018-11-08] MEDS ORDERED: BUPIVACAINE HCL 0.5%-EPI 1:200000 INJ/PF 30 ML VIAL ONE (10:24)
[2018-11-08] MEDS ORDERED: METRONIDAZOLE 500 MG/NS RTU 500 MG/100 ML RTUPB IV ONE (11:51)
[2018-11-08] MEDS ORDERED: CEFAZOLIN INJ 1 GM VIAL ONE (11:51)
[2018-11-08] MEDS ORDERED: PROPOFOL INJ 200 MG/20 ML VIAL IV ONE (11:55)
[2018-11-08] MEDS ORDERED: ACETAMINOPHEN 1,000 MG/100 ML RTUPB IV ONE (11:55)
[2018-11-08] MEDS ORDERED: DEXAMETHASONE SOD PHOSPHATE INJ 4 MG/1 ML VIAL ONE (11:55)
[2018-11-08] MEDS ORDERED: ONDANSETRON HCL INJ/PF 4 MG/2 ML SDV ONE (11:55)
[2018-11-08] MEDS ORDERED: MIDAZOLAM 2 MG/2 ML INJ ONE (11:55)
[2018-11-08] MEDS ORDERED: FENTANYL CITRATE INJ/PF 100 MCG/2 ML AMPUL ONE ×2 (11:55→14:17)
[2018-11-08] MEDS ORDERED: SCOPOLAMINE HYDROBROMIDE 1.5 MG PATCH.TD72 ONE (12:12)
[2018-11-08] MEDS ORDERED: FENTANYL CITRATE INJ/PF 100 MCG/2 ML AMPUL IV PRN ×3 (12:46)
[2018-11-08] MEDS ORDERED: MEPERIDINE HCL/PF INJ 25 MG/1 ML DISP.SYRIN IV PRN (12:46)
[2018-11-08] MEDS ORDERED: PROMETHAZINE HCL INJ 25 MG/1 ML VIAL IV PRN (12:46)
[2018-11-08] MEDS ORDERED: KETOROLAC TROMETHAMINE INJ/PF 30 MG/1 ML SDV ONE (13:50)
[2018-11-08] MEDS ORDERED: LORAZEPAM INJ 2 MG/1 ML VIAL ONE (14:05)
[2018-11-08] MEDS ORDERED: ONDANSETRON HCL INJ/PF 4 MG/2 ML SDV IV PRN (14:14)
[2018-11-08] MEDS ORDERED: NORMAL SALINE 1000 ML 1,000 ML IV PRN (14:15)
--- NOTE | 2018-11-08 14:23 | OPERATIVE REPORT E ---
Operative Report NAME: OPHELIA STRICKLAND : 1990 AGE: 28Y DATE OF SURGERY: 11/08/2018 ROOM: 218 PREOPERATIVE DIAGNOSIS: Acute cholecystitis, cholelithiasis. POSTOPERATIVE DIAGNOSIS: Acute cholecystitis, cholelithiasis. PROCEDURE: Laparoscopic cholecystectomy. SURGEON: NEVILLE SIDDIQUI M.D. ANESTHESIA: General. INDICATIONS: This is a 28-year-old female with right upper quadrant pain for the past few days associated with nausea. She has been to the emergency room a few times and this time she had an ultrasound, which showed gallstones with some pericholecystic fluid. She is markedly tender in the right upper quadrant. DESCRIPTION OF PROCEDURE: After adequate general anesthesia, the patient was placed in the supine position and the abdomen prepped and draped in the usual sterile fashion. Appropriate timeout was then called. Next, an infraumbilical incision was made, fascia identified and divided between 2 Harvey clamps. Two sutures of 0 Vicryl were placed on the site of the Harvey clamps and the clamps were released. With digital palpation through the fascia into the abdominal cavity no adhesions were noted. Next, a Dhruv trocar was then inserted through the fascia and CO2 insufflated to a pressure of 15 mmHg. Three other trocars were placed, a 12 mm in the subxiphoid and two 5 mm in the right upper quadrant under direct vision. Gallbladder was then identified, noted to be quite edematous and slightly distended, but able to be grasped with graspers at the tip and at the infundibulum. The cystic duct was then dissected as well as cystic artery. After the critical view of safety was established, the cystic duct was then clipped with hemoclips and divided between the hemoclips. At least 2 clips were placed on the proximal side. The artery was then clipped with hemoclips and divided between the 2 hemoclips. The gallbladder was then taken off the liver bed with the use of right angle cautery. Gallbladder was then completely removed from the liver bed and placed in an Endo Bag and pulled out through the umbilical port. There were at least three 1 cm stones palpated in the gallbladder and the gallbladder wall was very thick. Dhruv trocar was then put back and the operative site inspected and irrigated. No evidence of active bleeding noted. Irrigation was then suctioned and the trocars removed and CO2 allowed to come out of the trocar sites. The infraumbilical fascial defect was then closed with a [id number] suture using 0 Vicryl and the 2 stay sutures tied together. All the skin incisions were then closed with running subcuticular 5-0 Vicryl. Steri-Strips were then placed over the operative sites. Needle, instrument, sponge count were all correct. Estimated blood loss about 5 mL. The patient then brought to recovery in satisfactory condition, extubated. DICTATING PHYSICIAN: NEVILLE SIDDIQUI M.D. [id number] PHY#: [id number] ID: [id number] JOB#: [id number] ACCT: [id number] cc:NEVILLE SIDDIQUI M.D. >
[2018-11-08] MEDS ORDERED: ROCURONIUM BROMIDE INJ 50 MG/5 ML VIAL IV ONE (15:03)
[2018-11-08] MEDS ORDERED: SUCCINYLCHOLINE CHLORIDE INJ 200 MG/10 ML VIAL ONE (15:03)
[2018-11-08] MEDS ORDERED: MORPHINE SULFATE 10 MG/ML INJ ONE (15:12)
[2018-11-08] MEDS: PIPERACILLIN SODIUM/TAZOBACTAM 3.375 GM in NORMAL SALINE 100 ML IV SCH (18:03)
[2018-11-08] MEDS: KETOROLAC TROMETHAMINE INJ/PF 30 MG/1 ML SDV IV SCH (21:58)
[2018-11-09] MEDS: PIPERACILLIN SODIUM/TAZOBACTAM 3.375 GM in NORMAL SALINE 100 ML IV SCH ×3 (00:33→11:39)
[2018-11-09] MEDS: KETOROLAC TROMETHAMINE INJ/PF 30 MG/1 ML SDV IV SCH (05:44)
[2018-11-09] MEDS ORDERED: DOCUSATE SODIUM 100 MG CAPSULE PO ONE (13:00)
[2018-11-09] MEDS ORDERED: SENNOSIDES/DOCUSATE 8.6-50 MG 1 EACH TABLET PO ONE (13:00)
[2018-11-09] MEDS ORDERED: KETOROLAC TROMETHAMINE 10 MG TABLET PO ONE (13:00)
[2018-11-09 14:19] VITALS: BP 115/65
[2018-11-14] MEDS ORDERED: KETOROLAC TROMETHAMINE 10 MG TABLET PO PRN (06:00)
== END 2018-11-09 14:48 | disposition home or self-care (01) ==
LOC: ER 23:18 → EH 11-08 06:03 → 2S 11-08 07:50
PROVIDERS: ATTEND Surgery
PROC: 0FT44ZZ Resection of Gallbladder, Percutaneous Endoscopic Approach (ICD-10-PCS; principal; 2018-11-08 12:00)
PROC: 3E02340 Introduction of Influenza Vaccine into Muscle, Percutaneous Approach (ICD-10-PCS; 2018-11-09)
DX: K80.12 Calculus of gallbladder with acute and chronic cholecystitis without obstruction (principal); K21.9 Gastro-esophageal reflux disease without esophagitis; F17.200 Nicotine dependence, unspecified, uncomplicated; Z79.899 Other long term (current) drug therapy; Z23 Encounter for immunization; Z98.890 Other specified postprocedural states
CPT/HCPCS: 96376; 99285; 96361; 96374; 96375; 36415; 83690; 85025; 81025; 80053; 81001; 88304 ×2; 76705; 93976; 90686; 47562; G0008; J2250; J3490 ×3; J0690; J1100; J3010; J1885 ×2; J2270; J1170; J2060; J0330; J2405; J7030 ×2; J2704; J2543 ×2; J0131; 790; 90471